=== PATIENT | female | born 1965 | race American Indian/Alaskan Native ===

== ENCOUNTER 2021-01-18 00:09 | Emergency (ER) | payer SELFPAY ==
[2021-01-18] MEDS ORDERED: cloNIDine 0.2 MG TAB PO ONE (00:45)
--- NOTE | 2021-01-18 01:20 | Cat Scan Report ---
CT abdomen pelvis wo con INDICATION: Patient complains of RIGHT sided flank pain x 1 day.. COMPARISON: None TECHNIQUE: Abdominal and pelvic CT exam performed. All CT scans at this location are performed using CT dose reduction for ALARA by means of automated exposure control. FINDINGS: CT ABDOMEN and PELVIS: Lung Bases: Bibasilar atelectatic changes. Liver: No significant abnormality. Biliary: No significant abnormality. Spleen: No significant abnormality. Pancreas: No significant abnormality. Adrenals: No significant abnormality. Kidneys: 2 mm stone seen at the right ureterovesical junction with mild hydroureteronephrosis. Lymphatics: No lymphadenopathy. Vasculature: No significant abnormality. Bowel: No significant abnormality. Normal appendix. Pelvis: A couple small calcified fibroids. Osseous Structures: No aggressive osseous lesion. Additional Findings: None IMPRESSION: 1. 2 mm right UVJ stone with mild hydroureteronephrosis. Signer Name: Carlitos Saucedo MD Signed: 01/18/2021 1:15 AM Workstation Name: [id number]
[2021-01-18 01:40] LABS: Hematocrit 40.3 % (30.3-42.9); Hemoglobin 13.7 gm/dl (10.1-14.3); Mean Corpuscular HGB Conc 34 % (30-34); Mean Corpuscular Volume 93 fl (79-97); Platelet Count 357 K/mm3 (140-440); Red Blood Count 4.32 M/mm3 (3.65-5.03); Red Cell Distribution Width 17.3 % (13.2-15.2)
[2021-01-18 02:01] LABS: Alanine Aminotransferase 15 units/L (7-56); Albumin 4.5 g/dL (3.9-5); BUN/Creatinine Ratio 8; Blood Urea Nitrogen 8 mg/dL (7-17); Calcium 9.5 mg/dL (8.4-10.2); Hemolysis Index 8
[2021-01-18] MEDS ORDERED: KETOROLAC 30 MG/1 ML INJ IV ONE (02:04)
[2021-01-18] MEDS ORDERED: ONDANSETRON 4 MG/2 ML INJ IV ONE (02:04)
[2021-01-18] MEDS ORDERED: fentaNYL 100 MCG/2 ML INJ IV ONE (02:04)
--- NOTE | 2021-01-18 02:18 | Emergency Department Report ---
HPI - General Chief Complaint: Abdominal Pain Time Seen by Provider: 01/18/21 02:03 - HPI HPI: Room 23 The patient is a 55-year-old female present with a chief complaint of right flank pain. The patient states her symptoms began yesterday evening with pain in the right flank nausea vomiting. Patient states the pain resolved but then came back this evening. Patient currently gives her pain a score of 9-10/10. ED Past Medical Hx - Past Medical History Previous Medical History?: Yes Hx Hypertension: Yes (not on meds) - Surgical History Past Surgical History?: Yes Hx Breast Surgery: Yes (left lump) - Family History Family history: no significant - Social History Smoking Status: Current Every Day Smoker (1/2 pack/day) Substance Use Type: Alcohol (Beer daily), Marijuana - Medications Home Medications: Home Medications Medication Instructions Recorded Confirmed Last Taken Type HYDROcodone/APAP 5-325 [[place] 1 each PO Q6HR PRN #12 tablet 12/22/14 Unknown Rx 5-325 mg TAB] Ibuprofen [Motrin 400 MG tab] 400 mg PO Q8H PRN #30 tablet 12/22/14 Unknown Rx Penicillin Vk [Veetids TAB] 500 mg PO Q6H #40 tablet 12/22/14 Unknown Rx hydroCHLOROthiazide [HCTZ] 25 mg PO QDAY #30 tablet 12/22/14 Unknown Rx Ketorolac [Toradol] 10 mg PO Q6H PRN #16 tablet 01/18/21 Unknown Rx Sulfamethoxazole/Trimethoprim 1 each PO BID #14 tablet 01/18/21 Unknown Rx [Bactrim DS TAB] Tamsulosin [Flomax] 0.4 mg PO QDAY #4 cap 01/18/21 Unknown Rx oxyCODONE /ACETAMINOPHEN [Percocet 1 - 2 tab PO Q6HR PRN #14 tablet 01/18/21 Unknown Rx 5/325] ED Review of Systems ROS: Stated complaint: RT SIDE/BACK PAIN Other details as noted in HPI Constitutional: no symptoms reported Eyes: denies: eye pain ENT: denies: throat pain Respiratory: no symptoms reported Cardiovascular: denies: chest pain Endocrine: no symptoms reported Gastrointestinal: abdominal pain, nausea, vomiting Genitourinary: denies: dysuria Musculoskeletal: back pain Neurological: denies: headache Physical Exam - Physical Exam Vital Signs: Vital Signs 01/18/21 01/18/21 00:25 00:52 Temperature 97.7 F Pulse Rate 73 73 Respiratory 20 Rate Blood Pressure 223/97 223/97 O2 Sat by Pulse 100 Oximetry Physical Exam: GENERAL: The patient is well-developed well-nourished female lying on stretcher appearing to be in mild discomfort. [] HEENT: Normocephalic. Atraumatic. Extraocular motions are intact. Patient has moist mucous membranes. NECK: Supple. Trachea midline CHEST/LUNGS: Clear to auscultation. There is no respiratory distress noted. HEART/CARDIOVASCULAR: Regular. There is no tachycardia. There is no gallop rub or murmur. ABDOMEN: Abdomen is soft, nontender. Patient has normal bowel sounds. There is no abdominal distention. SKIN: There is no rash. There is no edema. There is no diaphoresis. NEURO: The patient is awake, alert, and oriented. The patient is cooperative. The patient has normal speech MUSCULOSKELETAL: There is no evidence of acute injury. ED Course Vital Signs 01/18/21 01/18/21 00:25 00:52 Temperature 97.7 F Pulse Rate 73 73 Respiratory 20 Rate Blood Pressure 223/97 223/97 O2 Sat by Pulse 100 Oximetry ED Medical Decision Making - Lab Data Result diagrams: 01/18/21 00:51 01/18/21 00:51 Laboratory Tests 01/18/21 01/18/21 01/18/21 00:51 00:51 02:21 WBC 8.1 RBC 4.32 Hgb 13.7 Hct 40.3 MCV 93 MCH 32 MCHC 34 RDW 17.3 H Plt Count 357 Sodium 134 L Potassium 3.8 Chloride 97.4 L Carbon Dioxide 22 Anion Gap 18 BUN 8 Creatinine 1.0 Estimated GFR > 60 BUN/Creatinine Ratio 8 Glucose 153 H Calcium 9.5 Total Bilirubin 0.60 AST 22 ALT 15 Alkaline Phosphatase 102 Total Protein 7.5 Albumin 4.5 Albumin/Globulin Ratio 1.5 Urine Color Yellow Urine Turbidity Slightly-cloudy Urine pH 5.0 Ur Specific [place] 1.019 Urine Protein <15 mg/dl Urine Glucose (UA) Neg Urine Ketones Tr Urine Blood Mod Urine Nitrite Neg Urine Bilirubin Neg Urine Urobilinogen < 2.0 Ur Leukocyte Esterase Tr Urine WBC (Auto) 9.0 H Urine RBC (Auto) 16.0 U Epithel Cells (Auto) 2.0 Urine Mucus 1+ Urine HCG, Qual Negative - Radiology Data Radiology results: report reviewed (CT abdomen pelvis), image reviewed (CT abdomen pelvis) [facility] [address] [place] [address] Cat Scan Report Signed Patient: JINA AMBRIZ MR#: [id number] : 1965 Acct:[id number] Age/Sex: 55 / F ADM Date: 01/18/21 Loc: ED Attending Dr: Ordering Physician: PARRISH RANDOLPH MD Date of Service: 01/18/21 Procedure(s): CT abdomen pelvis wo con Accession Number(s): [id number] cc: PARRISH RANDOLPH MD CT abdomen pelvis wo con INDICATION: Patient complains of RIGHT sided flank pain x 1 day.. COMPARISON: None TECHNIQUE: Abdominal and pelvic CT exam performed. All CT scans at this location are performed using CT dose reduction for ALARA by means of automated exposure control. FINDINGS: CT ABDOMEN and PELVIS: Lung Bases: Bibasilar atelectatic changes. Liver: No significant abnormality. Biliary: No significant abnormality. Spleen: No significant abnormality. Pancreas: No significant abnormality. Adrenals: No significant abnormality. Kidneys: 2 mm stone seen at the right ureterovesical junction with mild hydroureteronephrosis. Lymphatics: No lymphadenopathy. Vasculature: No significant abnormality. Bowel: No significant abnormality. Normal appendix. Pelvis: A couple small calcified fibroids. Osseous Structures: No aggressive osseous lesion. Additional Findings: None IMPRESSION: 1. 2 mm right UVJ stone with mild hydroureteronephrosis. Signer Name: Carlitos Saucedo MD Signed: 01/18/2021 1:15 AM Workstation Name: [id number] Transcribed By: CS Dictated By: Carlitos Saucedo MD Electronically Authenticated By: Carlitos Saucedo MD Signed Date/Time: 01/18/21114 DD/ 2 TD/TT: - Differential Diagnosis Renal colic, pyelonephritis, Critical care attestation.: If time is entered above; I have spent that time in minutes in the direct care of this critically ill patient, excluding procedure time. ED Disposition Clinical Impression: Renal colic on right side, Acute right flank pain, UTI (urinary tract infection) Disposition: - TO HOME OR SELFCARE Is pt being admited?: No Does the pt Need Aspirin: No Condition: Stable Instructions: Abdominal Pain (ED), Kidney Stones, [id number] Additional Instructions: Return to the emergency department should you develop worsening symptoms, inability to tolerate food or liquids, high fever or any other concerns Prescriptions: Sulfamethoxazole/Trimethoprim [Bactrim DS TAB] 1 each PO BID #14 tablet Tamsulosin [Flomax] 0.4 mg PO QDAY #4 cap oxyCODONE /ACETAMINOPHEN [Percocet 5/325] 1 - 2 tab PO Q6HR PRN #14 tablet PRN Reason: Pain Ketorolac [Toradol] 10 mg PO Q6H PRN #16 tablet PRN Reason: Pain Referrals: PRIMARY CARE, [Primary Care Provider] - 3-5 Days HECTOR BERNAL MD [Staff Physician] - 3-5 Days (Dr. Bernal is a urologist. Please follow-up with him for further evaluation) Time of Disposition: 02:48
[2021-01-18 02:36] LABS: Bilirubin,Urine NEG (Negative); Blood,Urine MOD (Negative); Color,Urine Yellow (Yellow); Mucus,Urine 1+ /HPF; Protein,Urine <15 mg/dL mg/dL (Negative); Urobilinogen,Urine < 2.0 mg/dL (<2.0)
[2021-01-18 02:37] LABS: HCG Qualitative,Urine Negative (Negative)
[2021-01-18 03:05] VITALS: BP 156/83
== END 2021-01-18 03:21 | disposition home or self-care (01) ==
LOC: ED 00:09
DX: N23 Unspecified renal colic (principal); N39.0 Urinary tract infection, site not specified; I10 Essential (primary) hypertension; F17.200 Nicotine dependence, unspecified, uncomplicated; F12.90 Cannabis use, unspecified, uncomplicated; Z79.899 Other long term (current) drug therapy; Z98.890 Other specified postprocedural states
CPT/HCPCS: 36415; 74176; 80053; 81001; 81025; 85027; 87086; 96374; 96375; 99284; J1885; J2405

== ENCOUNTER 2022-03-22 12:17 | Emergency (ER) | payer SELFPAY ==
[2022-03-22 12:24] VITALS: BP 185/92
--- NOTE | 2022-03-22 12:27 | Emergency Department Report ---
ED Recheck HPI - General Chief Complaint: Recheck/Abnormal Lab/Rx Stated Complaint: BP MED REFILL Time Seen by Provider: 03/22/22 12:27 Source: patient Mode of arrival: Ambulatory Limitations: No Limitations - History of Present Illness Initial Comments: Patient is a 56-year-old female that comes to the emergency room out of her blood pressure medications. She denies any headache, chest pain or shortness of breath. She has been seen by Dr. Pendleton in the past and given prescriptions for her blood pressure. She does not have a PCP. She states she does not have insurance. Complaint: medication refill request Returns Today for: request for prescription Symptoms Since Prior Visit: no new symptoms Associated Symptoms: none - Related Data Previous Rx's Medication Instructions Recorded Last Taken Type HYDROcodone/APAP 5-325 [[place] 1 each PO Q6HR PRN #12 tablet 12/22/14 Unknown Rx 5-325 mg TAB] Ibuprofen [Motrin 400 MG tab] 400 mg PO Q8H PRN #30 tablet 12/22/14 Unknown Rx Penicillin Vk [Veetids TAB] 500 mg PO Q6H #40 tablet 12/22/14 Unknown Rx hydroCHLOROthiazide [HCTZ] 25 mg PO QDAY #30 tablet 12/22/14 Unknown Rx Ketorolac [Toradol] 10 mg PO Q6H PRN #16 tablet 01/18/21 Unknown Rx Ondansetron [Zofran ODT TAB] 8 mg PO Q8HR #20 tab.rapdis 01/18/21 Unknown Rx Sulfamethoxazole/Trimethoprim 1 each PO BID #14 tablet 01/18/21 Unknown Rx [Bactrim DS TAB] Tamsulosin [Flomax] 0.4 mg PO QDAY #4 cap 01/18/21 Unknown Rx oxyCODONE /ACETAMINOPHEN [Percocet 1 - 2 tab PO Q6HR PRN #14 tablet 01/18/21 Unknown Rx 5/325] amLODIPine 5 mg PO DAILY #90 tab 03/22/22 Unknown Rx Allergies Allergy/AdvReac Type Severity Reaction Status Date / Time No Known Allergies Allergy Unverified 06/21/14 17:40 ED Review of Systems ROS: Stated complaint: BP MED REFILL Other details as noted in HPI Comment: All other systems reviewed and negative ED Past Medical Hx - Past Medical History Previous Medical History?: Yes Hx Hypertension: Yes - Surgical History Past Surgical History?: Yes Hx Breast Surgery: Yes (left lump) - Social History Smoking Status: Current Every Day Smoker (1/2 pack/day) Substance Use Type: Alcohol (Beer daily), Marijuana - Medications Home Medications: Home Medications Medication Instructions Recorded Confirmed Last Taken Type HYDROcodone/APAP 5-325 [[place] 1 each PO Q6HR PRN #12 tablet 12/22/14 Unknown Rx 5-325 mg TAB] Ibuprofen [Motrin 400 MG tab] 400 mg PO Q8H PRN #30 tablet 12/22/14 Unknown Rx Penicillin Vk [Veetids TAB] 500 mg PO Q6H #40 tablet 12/22/14 Unknown Rx hydroCHLOROthiazide [HCTZ] 25 mg PO QDAY #30 tablet 12/22/14 Unknown Rx Ketorolac [Toradol] 10 mg PO Q6H PRN #16 tablet 01/18/21 Unknown Rx Ondansetron [Zofran ODT TAB] 8 mg PO Q8HR #20 tab.rapdis 01/18/21 Unknown Rx Sulfamethoxazole/Trimethoprim 1 each PO BID #14 tablet 01/18/21 Unknown Rx [Bactrim DS TAB] Tamsulosin [Flomax] 0.4 mg PO QDAY #4 cap 01/18/21 Unknown Rx oxyCODONE /ACETAMINOPHEN [Percocet 1 - 2 tab PO Q6HR PRN #14 tablet 01/18/21 Unknown Rx 5/325] amLODIPine 5 mg PO DAILY #90 tab 03/22/22 Unknown Rx ED Physical Exam - General Limitations: No Limitations General appearance: alert, in no apparent distress - Head Head exam: Present: atraumatic, normocephalic - Eye Eye exam: Present: normal appearance - ENT ENT exam: Present: mucous membranes moist - Neck Neck exam: Present: normal inspection - Respiratory Respiratory exam: Present: normal lung sounds bilaterally. Absent: respiratory distress - Cardiovascular Cardiovascular Exam: Present: regular rate, normal rhythm. Absent: systolic murmur, diastolic murmur, rubs, gallop - GI/Abdominal GI/Abdominal exam: Present: soft, normal bowel sounds - Extremities Exam Extremities exam: Present: normal inspection - Back Exam Back exam: Present: normal inspection - Neurological Exam Neurological exam: Present: alert, oriented X3 - Psychiatric Psychiatric exam: Present: normal affect, normal mood - Skin Skin exam: Present: warm, dry, intact, normal color. Absent: rash ED Course Vital Signs 03/22/22 12:22 Temperature 98.2 F Pulse Rate 115 H Respiratory 18 Rate Blood Pressure 185/92 O2 Sat by Pulse 100 Oximetry ED Recheck MDM - Core Measures Measure Exclusions: not indicated - Differential Diagnosis Prescription Refill(s) - Medical Decision Making Courtesy medication refill for hypertension. Patient has been out of her medicine for about a week. I have educated her that we will no longer give you medication refills. That she will need to see primary care. She verbalizes understanding. Primary care referral given. Heart rate on provider exam 80. Vital Signs 03/22/22 12:22 Temperature 98.2 F Pulse Rate 115 H Respiratory 18 Rate Blood Pressure 185/92 O2 Sat by Pulse 100 Oximetry Patient being discharged home with discharge plan of care including diet, activity medications and follow-up. She verbalizes understanding of plan of care Critical care attestation.: If time is entered above; I have spent that time in minutes in the direct care of this critically ill patient, excluding procedure time. ED Disposition Clinical Impression: Medical non-compliance, Medication refill Hypertension Qualifiers: Hypertension type: unspecified Qualified Code(s): I10 - Essential (primary) hypertension Disposition: HOME / SELF CARE / HOMELESS Is pt being admited?: No Does the pt Need Aspirin: No Condition: Stable Instructions: Hypertension During , [id number], Hypertension (ED) Additional Instructions: Take medication daily as prescribed. Low-fat, low-sodium diet. Drink a lot of water. Follow-up with PCP as instructed. Referral below Prescriptions: amLODIPine 5 mg PO DAILY #90 tab Referrals: DEE COMBS MD [Primary Care Provider] - 3-5 Days [facility] [Outside] - 3-5 Days [facility] [Outside] - 3-5 Days Time of Disposition: 12:27
== END 2022-03-22 12:45 | disposition home or self-care (01) ==
LOC: ED 12:17
DX: I10 Essential (primary) hypertension (principal); Z76.0 Encounter for issue of repeat prescription; Z91.19 Patient's noncompliance with other medical treatment and regimen
CPT/HCPCS: 99282